=== PATIENT | male | born 1975 | race Two or more races ===

== ENCOUNTER 2024-11-11 18:21 | Emergency (ER) | payer MEDICAID, OTHER ==
[~2024-11-11] VITALS: Ht 177.8 cm; Wt 109.7 kg
--- NOTE | 2024-11-11 19:22 | ED.PDOC ---
SOB-HPI HPI Comments C/O LEFT RIB PAIN ON MOVEMENT AND WHEN HE COUGHS STARTED LAST NIGHT DENIES FALL OR TRAUMA C/O RIGHT KNEE PAIN X 3 WEEKS DENIES INJURY Chief Complaint: Rib Pain Time Seen by MD: 18:25 Primary Care Provider: NONE Reviewed notes: Nurses Notes, Medications, Allergies Information Source: Patient Mode of Arrival: Ambulatory Past Medical History PAST MEDICAL HISTORY: Denies Surgical History: Denies all surgeries Family History Family History: Reviewed,noncontributory to illness Social History Smoker: Non-Smoker Alcohol: Denies ETOH Use Drugs: Denies Drug Use Constitutional: denies: chills, diaphoresis, fatigue, fever, malaise, sweats, weakness, others EENTM: denies: blurred vision, double vision, ear bleeding, ear discharge, ear drainage, ear pain, ear ringing, eye pain, eye redness, hearing loss, mouth pain, mouth swelling, nasal discharge, nose bleeding, nose congestion, nose pain, photophobia, tearing, throat pain, throat swelling, voice changes, others Respiratory: denies: cough, hemoptysis, orthopnea, SOB at rest, shortness of breath, SOB with excertion, stridor, wheezing, others Cardiovascular: denies: chest pain, dizzy spells, diaphoresis, Dyspnea on exertion, edema, irregular heart beat, left arm pain, lightheadedness, palpitations, PND, syncope, others Gastrointestinal: denies: abdomen distended, abdominal pain, blood streaked bowels, constipated, diarrhea, dysphagia, difficulty swallowing, hematemesis, melena, nausea, poor appetite, poor fluid intake, rectal bleeding, rectal pain, vomiting, others Genitourinary: denies: burning, dysuria, flank pain, frequency, hematuria, incontinence, penile discharge, penile sore, pain, testicle pain, testicle swelling, urgency, others Neurological: denies: dizziness, fainting, headache, left sided numbness, left sided weakness, numbness, paresthesia, pre-existing deficit, right sided numbness, right sided weakness, seizure, speech problems, tingling, tremors, weakness, others Musculoskeletal: reports: joint pain, others (left rib pain); denies: back pain, gout, joint swelling, muscle pain, muscle stiffness, neck pain Physical Exam General Appearance: No Apparent Distress, Normal HEENT: Normal ENT Inspection, Pharynx Normal, TMs Normal Neck: Full Range of Motion, Non-Tender Respiratory: Lungs Clear, No Accessory Muscle Use, No Respiratory Distress, Normal Breath Sounds, Other (Left lower rib tenderness no noted gross visible external trauma) Cardiovascular: No Edema, No JVD, No Murmur, No Gallop, Normal Peripheral Pu lses, Regular Rate/Rhythm Breast Exam: Deferred Gastrointestinal: No Organomegaly, Non Tender, No Pulsatile Mass, Normal Bowel Sounds, Soft Genitalia: Deferred Pelvic: Deferred Rectal: Deferred Extremities: No calf tenderness, Normal capillary refill, Normal inspection, Normal range of motion, Non-tender, No pedal edema Musculoskeletal : Location: Right Extremity Location: Knee (Tenderness palpated over anterior knee negative Marcella's negative drawer test. Negative ballottement. No noted gross visible external trauma. Strength sensory motion intact positive popliteal and pedal pulse) Apperance: Normal Neurologic: Alert, bone crusher II-XII nml as Tested, No Motor Deficits, Normal Affect, Normal Mood, No Sensory Deficits Cerebellar Function: Normal Reflexes: Normal Skin: Dry, Normal Color, Warm Lymphatic: No Adenopathy Was a procedure done? Was a procedure done?: No Differential Dx Differential Diagnosis: Pneumonia, Pneumothorax X-Ray, Labs, Meds, VS Vital Signs Date Time Temp Pulse Resp B/P (MAP) Pulse Ox O2 Delivery O2 Flow Rate FiO2 11/11/24 18:48 98.5 87 15 151/96 (114) 98 98.5 X-Ray, Labs, Meds, VS Comment Rib and chest x-ray show no acute fractures, osseous lesions or cardiopulmonary findings. Right knee shows no acute fractures dislocations mild OA. Script trial of antibiotics Medrol Dosepak cough medication advised take medications as prescribed side effects discussed. Advised to follow up PCP in 2-3 days as necessary rest increase p.o. fluids with electrolytes ER return precautions given patient indicates understanding agrees with discharge plan of care. Time of 1ST Reevaluation: 19:22 Reevaluation 1ST: Unchanged Time of 2ND Reevaluation: 22:03 Reevaluation 2ND: Improved Patient Education/Counseling: Diagnosis, Treatment, Prognosis, Need For Follow Up Family Education/Counseling: No Family Present SEPSIS Sepsis Screen Date sepsis recognized/suspect: Nov 11, 2024 Time Sepsis recognized/suspect: 1819 Recent Procedure: No On Antibiotic Therapy: No Respiratory Rate >20: No Heart Rate >90: No Temp<36 C (96.8 F) or >38.3 C: No SBP <90 or MAP <65 mmHG: No New Acute Mental Status Change: No Is the patient on CPAP, BIPAP,: No Physician Orders Ribs Bilateral (11/11/24 19:23) R Knee 3v Xray (11/11/24 19:23) Vital Signs Date Time Temp Pulse Resp B/P (MAP) Pulse Ox O2 Delivery O2 Flow Rate FiO2 11/11/24 18:48 98.5 87 15 151/96 (114) 98 98.5 Departure 1 Departure Time of Disposition: 22:00 Impression: Primary Impression: Rib pain on left side Additional Impression: Arthritis of right knee Disposition: 01 HOME / SELF CARE / HOMELESS Condition: Stable e-Prescriptions Methylprednisolone (Medrol Dosepak) 4 Mg Jean Carlos 4 MG PO UD for 6 Days, #21 TAB UAD Prov: ROMERO THOMPSONP 11/11/24 Promethazine-Dm (Promethazine Hydrochlorid 6.25-15 mg/5Ml) 1 Naila Naila 5 ML PO TID PRN for 4 Days, #60 ML Prov: ROMERO THOMPSON [facility] 11/11/24 Azithromycin (Azithromycin) 250 Mg Tab 250 MG PO DAILY MDD 500 for 5 Days, #6 TAB 0 Refills 2 TABLETS ORALLY ON DAY ONE, THEN 1 TABLET ORALLY DAILY FOR 4 DAYS Prov: ROMERO THOMPSON 11/11/24 Discharged With: Self Critical Care Note Critical Care Time?: No Stability Stability form required: No Heart Score Heart Score: Heart Score Response (Comments) Value History N/A 0 EKG N/A 0 Age 45-64 1 Risk Factors N/A 0 Troponin N/A 0 Total 1 ROMERO THOMPSON Nov 11, 2024 19:22
--- NOTE | 2024-11-11 21:17 | DVH ---
CLINICAL INDICATION: Pain TECHNIQUE: XY R KNEE 3V XRAY Comparison: None FINDINGS/IMPRESSION: : There is no evidence of acute fracture or dislocation. Soft tissues are unremarkable.
--- NOTE | 2024-11-11 21:52 | DVH ---
EXAMINATION: XY RIBS BILATERAL INDICATION: Right-sided rib pain and cough COMPARISON: None TECHNIQUE: Frontal view of the chest and 8 views of the bilateral ribs history FINDINGS: No focal consolidation, pleural effusion or significant pneumothorax. Normal cardiomediastinal silhou ette. No displaced bilateral rib fracture. IMPRESSION: 1. No acute cardiopulmonary disease. No displaced bilateral rib fracture.
[2024-11-11] MEDS ORDERED: METH4PAK PO (22:03)
[2024-11-11] MEDS ORDERED: AZIT-43 PO (22:03)
[2024-11-11] MEDS ORDERED: PROM1SOL2 PO (22:03)
[2024-11-11 22:10] VITALS: BP 139/89; PULSE 89; RESP 16; TEMP 98.5; O2SAT 95
[2024-11-11] MEDS: KETOROLAC TROMETH 60MG/2ML VIAL IM ONE (22:15)
[2024-11-11] MEDS: HYDROcodone-ACET 5/325MG TAB PO ONE (22:16)
== END 2024-11-11 22:23 | disposition home or self-care (01) ==
LOC: ER 18:21
DX: M17.11 Unilateral primary osteoarthritis, right knee (principal); R07.81 Pleurodynia
CPT/HCPCS: 71111; 73562; 96372; 99284; J1885

== ENCOUNTER 2024-11-26 16:05 | Emergency (ER) | payer MEDICAID ==
[~2024-11-26] VITALS: Ht 177.8 cm; Wt 102.0 kg
[~2024-11-26 16:05] MED LIST: AZIT-43 PO
[2024-11-26 18:34] VITALS: BP 142/99; PULSE 88; RESP 17; TEMP 98.7; O2SAT 96
--- NOTE | 2024-11-26 18:36 | ED.PDOC ---
GI ASSESSMENT HPI Comments 49-year-old presents to the ED chief complaint possible food poisoning. Patient states around 6:00 a.m. earlier today he took a bite of a doing done pastry and states tasted like paint thinner. Patient states he took a little bite and spit the rest out. He notes about 30 40 minutes after he started having some abdominal cramping mouth numbness and nausea. Noted no vomiting chest pain or shortness of breath does state some dizziness. Currently he does state symptoms have improved he does have some cramping generalized with some nausea. Chief Complaint: Abdominal Pain Time Seen by MD: 18:09 Primary Care Provider: NONE Reviewed Notes: Nurses Notes, Medications, Allergies Allergies: Coded Allergies: NO KNOWN ALLERGIES (Unverified , 11/11/24) Home Meds Active Scripts Azithromycin (Azithromycin) 250 Mg Tab, 250 MG PO DAILY MDD 500 for 5 Days, #6 TAB 0 Refills 2 TABLETS ORALLY ON DAY ONE, THEN 1 TABLET ORALLY DAILY FOR 4 DAYS Prov:ROMERO THOMPSON [facility] 11/11/24 Information Source: Patient Mode of Arrival: Ambulatory Past Medical History PAST MEDICAL HISTORY: Denies Surgical History: Denies all surgeries Family History Family History: Reviewed,noncontributory to illness Social History Smoker: Non-Smoker Alcohol: Denies ETOH Use Drugs: Denies Drug Use Constitutional: denies: chills, diaphoresis, fatigue, fever, malaise, sweats, weakness, others EENTM: denies: blurred vision, double vision, ear bleeding, ear discharge, ear drainage, ear pain, ear ringing, eye pain, eye redness, hearing loss, mouth pain, mouth swelling, nasal discharge, nose bleeding, nose congestion, nose pain, photophobia, tearing, throat pain, throat swelling, voice changes, others Respiratory: denies: cough, hemoptysis, orthopnea, SOB at rest, shortness of breath, SOB with excertion, stridor, wheezing, others Cardiovascular: denies: chest pain, dizzy spells, diaphoresis, Dyspnea on exertion, edema, irregular heart beat, left arm pain, lightheadedness, palpitations, PND, syncope, others Gastrointestinal: reports: abdominal pain, nausea; denies: abdomen distended, blood streaked bowels, constipated, diarrhea, dysphagia, difficulty swallowing, hematemesis, melena, poor appetite, poor fluid intake, rectal bleeding, rectal pain, vomiting, others Genitourinary: denies: burning, dysuria, flank pain, frequency, hematuria, incontinence, penile discharge, penile sore, pain, testicle pain, testicle swelling, urgency, others Neurological: denies: dizziness, fainting, headache, left sided numbness, left sided weakness, numbness, paresthesia, pre-existing deficit, right sided numbness, right sided weakness, seizure, speech problems, tingling, tremors, weakness, others Musculoskeletal: denies: back pain, gout, joint pain, joint swelling, muscle pain, muscle stiffness, neck pain, others Integumetry: denies: bruises, change in color, change in hair/nails, dryness, laceration, lesions, lumps, rash, wounds, others Allergic/Immunocompromised: denies: Difficulty Healing, Frequent Infections, Hives, Itching, others Hematologic/Lymphatic: denies: anemia, blood clots, easy bleeding, easy bruising, swollen glands, others Endocrine: denies: excessive hunger, excessive sweating, excessive thirst, excessive urination, flushing, intolerance to cold, intolerance to heat, unexplained weight gain, unexplained weight loss, others Physical Exam General Appearance: No Apparent Distress, Normal HEENT: Pharynx Normal Neck: Full Range of Motion, Non-Tender Respiratory: Lungs Clear, No Respiratory Distress, Normal Breath Sounds Cardiovascular: No Edema, No JVD, No Murmur, No Gallop, Normal Peripheral Pulses, Regular Rate/Rhythm Breast Exam: Deferred Gastrointestinal: No Organomegaly, Non Tender, No Pulsatile Mass, Normal Bowel Sounds, Soft Genitalia: Deferred Pelvic: Deferred Rectal: Deferred Extremities: Normal range of motion, No pedal edema Musculoskeletal : Apperance: Normal Neurologic: Alert, No Motor Deficits, Normal Affect, Normal Mood, No Sensory Deficits Cerebellar Function: Normal Reflexes: NOT DONE Skin: Dry, Normal Color, Warm Lymphatic: No Adenopathy Was a procedure done? Was a procedure done?: No GI differential Dx Differential Diagnosis: Gastritis/PUD, Gastroenteritis, Food Poisoning, Bacterial, Parasitic, Viral X-Ray, Labs, Meds, VS Vital Signs Date Time Temp Pulse Resp B/P (MAP) Pulse Ox O2 Delivery O2 Flow Rate FiO2 11/26/24 18:34 88 17 96 Room Air 11/26/24 18:34 98.7 88 16 142/99 (113) 96 98.7 11/26/24 16:07 97.5 81 16 159/97 95 97.5 Lab Test 11/26/24 18:21 Range/Units White Blood Count 6.3 4.4-10.8 10^3/uL Red Blood Count 5.74 4.5-5.90 10^6/uL Hemoglobin 16.3 13.5-17.5 g/dL Hematocrit 47.1 41.0-53.0 % Mean Corpuscular Volume 82.1 80.0-100.0 fL Mean Corpuscular Hemoglobin 28.5 28.0-32.0 pg Mean Corpuscular Hemoglobin Concent 34.7 32.0-36.0 g/dL Red Cell Distribution Width 14.9 H 11.8-14.3 % Platelet Count 248 140-450 10^3/uL Mean Platelet Volume 7.6 6.9-10.8 fL Neutrophils (%) (Auto) 62.5 37.0-80.0 % Lymphocytes (%) (Auto) 26.9 10.0-50.0 % Monocytes (%) (Auto) 7.0 0.0-12.0 % Eosinophils (%) (Auto) 2.5 0.0-7.0 % Basophils (%) (Auto) 1.1 0.0-2.0 % Neutrophils # (Auto) 3.9 1.6-8.6 10 ^3/uL Lymphocytes # (Auto) 1.7 0.4-5.4 10 ^3/uL Monocytes # (Auto) 0.4 0-1.3 10 ^3/uL Eosinophils # (Auto) 0.2 0-0.8 10 ^3/uL Basophils # (Auto) 0.1 0-0.2 10 ^3/uL Nucleated Red Blood Cells 0.0 % Sodium Level 142 136-145 mmol/L Potassium Level 3.8 3.5-5.1 mmol/L Chloride Level 110 H 98-107 mmol/L Carbon Dioxide Level 23 20-31 mmol/L Anion Gap 9 5-15 Blood Urea Nitrogen 14 9-23 mg/dL Creatinine 1.13 0.700-1.30 mg/dL Glomerular Filtration Rate Calc 81 >90 mL/min BUN/Creatinine Ratio 12.4 10.0-20.0 Serum Glucose 111 H 74-106 mg/dL Calcium Level 9.0 8.7-10.4 mg/dL Lipase 60 H 12-53 U/L Current Medications Medications (Trade) Dose Ordered Sig/Fabian Route Start Time Stop Time Status Last Admin Famotidine (Pepcid Tablet) 40 mg ONCE ONCE PO 11/26/24 18:45 11/26/24 18:46 DC 11/26/24 18:38 Ondansetron HCl (Zofran Po) 4 mg ONCE ONCE PO 11/26/24 18:45 11/26/24 18:46 DC 11/26/24 18:39 X-Ray, Labs, Meds, VS Comment CBC CMP within normal limits. Possible food poisoning. Reports improvement with Pepcid and Zofran. Advised to rest increase p.o. fluids with electrolytes. Light diet until symptoms resolve. Follow up with your PCP in two days. ER return precautions given patient indicates understanding agrees with discharge plan of care. Time of 1ST Reevaluation: 18:15 Reevaluation 1ST: Unchanged Time of 2ND Reevaluation: 19:07 Reevaluation 2ND: Improved Patient Education/Counseling: Diagnosis, Treatment, Prognosis, Need For Follow Up Family Education/Counseling: Diagnosis, Treatment, Prognosis, Need For Follow Up SEPSIS Sepsis Screen Date sepsis recognized/suspect: Nov 26, 2024 Time Sepsis recognized/suspect: 1609 Recent Procedure: No On Antibiotic Therapy: No Respiratory Rate >20: No Heart Rate >90: No Temp<36 C (96.8 F) or >38.3 C: No SBP <90 or MAP <65 mmHG: No New Acute Mental Status Change: No Is the patient on CPAP, BIPAP,: No Vital Signs Date Time Temp Pulse Resp B/P (MAP) Pulse Ox O2 Delivery O2 Flow Rate FiO2 11/26/24 18:34 88 17 96 Room Air 11/26/24 18:34 98.7 88 16 142/99 (113) 96 98.7 11/26/24 16:07 97.5 81 16 159/97 95 97.5 Laboratory Tests Test 11/26/24 18:21 White Blood Count 6.3 10^3/uL (4.4-10.8) Medications Medications Dose Ordered Sig/Fabian Route Start Time Stop Time Status Last Admin Dose Admin Famotidine 40 mg ONCE ONCE PO 11/26/24 18:45 11/26/24 18:46 DC 11/26/24 18:38 Ondansetron HCl 4 mg ONCE ONCE PO 11/26/24 18:45 11/26/24 18:46 DC 11/26/24 18:39 Departure 1 Departure Time of Disposition: 19:07 Impression: Primary Impression: Gastritis Qualified Codes: K29.00 - Acute gastritis without bleeding Disposition: 01 HOME / SELF CARE / HOMELESS Condition: Stable Discharged With: Self Critical Care Note Critical Care Time?: No Stability Stability form required: ROMERO SimeonP Nov 26, 2024 18:36
[2024-11-26] MEDS: FAMOTIDINE 20 MG TAB PO ONE (18:38)
[2024-11-26] MEDS: ONDANSETRON ODT 4 MG TAB PO ONE (18:39)
[2024-11-26 18:41] LABS: Hematocrit 47.1 % (41.0-53.0); Hemoglobin 16.3 g/dL (13.5-17.5); Mean Corpuscular Hemoglobin 28.5 pg (28.0-32.0); Mean Corpuscular Volume 82.1 fL (80.0-100.0); Nucleated Red Blood Cells % 0.0 %
[2024-11-26 18:50] LABS: Potassium 3.8 mmol/L (3.5-5.1); Sodium 142 mmol/L (136-145)
[2024-11-26 18:51] LABS: Anion Gap 9 (5-15); Carbon Dioxide 23 mmol/L (20-31)
[2024-11-26 18:52] LABS: Calcium 9.0 mg/dL (8.7-10.4)
[2024-11-26 18:54] LABS: Chloride 110 mmol/L (98-107)
[2024-11-26 18:57] LABS: BUN/Creatinine Ratio 12.4 (10.0-20.0); Blood Urea Nitrogen 14 mg/dL (9-23); Glucose 111 mg/dL (74-106); Lipase 60 U/L (12-53)
== END 2024-11-26 19:13 | disposition home or self-care (01) ==
LOC: ER 16:05
DX: K29.70 Gastritis, unspecified, without bleeding (principal)
CPT/HCPCS: 36415; 80048; 83690; 85025; 99283; Q0162

== ENCOUNTER 2025-03-12 15:26 | Inpatient (IN) | payer SELFPAY ==
[~2025-03-12] VITALS: Ht 180.3 cm; Wt 115.0 kg
[2025-03-12] MEDS: KETOROLAC TROMETH 30 MG/ML 1ML VIAL IM ONE (16:04)
[2025-03-12] MEDS: HYDROcodone-ACET 5/325MG TAB PO ONE (16:04)
--- NOTE | 2025-03-12 16:23 | DVH ---
EXAM: XY L KNEE 3V XRAY HISTORY: pain COMPARISON: XY R KNEE 3V XRAY on DOS: 11/11/24 TECHNIQUE: 3 views of the left knee were performed. FINDINGS: No acute fracture is identified about the left knee. There are small marginal osteophytes of the medial and patellofemoral compartments without significant joint space narrowing. Large joint effusion accumulates in the suprapatellar pouch IMPRESSION: 1. Mild degenerative changes of the left knee without evidence of acute fracture. 2. Large left knee effusion is suggestive of internal derangement. Recommend follow-up noncontrast MRI of the left knee for evaluation of the ligaments and menisci.
--- NOTE | 2025-03-12 17:09 | ED.PDOC ---
Musculoskeletal HPI Comments This is a pleasant 49-year-old male with no pertinent MHx that presents with a chief complaint of acute, atraumatic, localized nonradiating knee pain that is located to the left anterior patella. Onset occurred suddenly yesterday and was associated with swelling. Swelling is mostly localized to the anterior knee. The pain began yesterday after a cramp in his foot while lying down which led to stretching and subsequent swelling to the knee. Since then however the pain has been persistent and has not improved with [id number] medication. Patient has no history of recent trauma or extreme physical activity that could have contributed to the pain. 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 He denies any knee surgeries knee traumas in the past. Denies any history of diabetes autoimmune diseases. He also notes that he does not have a primary care doctor at this time in his unable to obtain outpatient follow up. ==-- Denies trauma to the knee or recent fall Denies skin color changes around the knee Denies masses around the knee Denies popping/locking/giving out of the knee Denies fever chills night sweats nausea vomiting Denies previous surgeries to the knee nor significant injury Chief Complaint: Lower Extremity Time Seen by MD: 15:46 Primary Care Provider: NONE Reviewed Notes: Nurses Notes, Medications, Allergies Allergies: Coded Allergies: NO KNOWN ALLERGIES (Unverified , 11/11/24) Home Meds Active Scripts Azithromycin (Azithromycin) 250 Mg Tab, 250 MG PO DAILY MDD 500 for 5 Days, #6 TAB 0 Refills 2 TABLETS ORALLY ON DAY ONE, THEN 1 TABLET ORALLY DAILY FOR 4 DAYS Prov:ROMERO THOMPSON [facility] 11/11/24 Information Source: Patient Mode of Arrival: Ambulatory Past Medical History PAST MEDICAL HISTORY: Denies Surgical History: Denies all surgeries Family History Family History: Reviewed,noncontributory to illness Social History Smoker: Non-Smoker Alcohol: Denies ETOH Use Drugs: Denies Drug Use All Other Systems: Reviewed and Negative (per hpi) Physical Exam General Appearance: No Apparent Distress, Normal HEENT: Normal ENT Inspection, Pharynx Normal, TMs Normal Neck: Full Range of Motion, Non-Tender, Normal, Normal Inspection Respiratory: Chest Non-Tender, Lungs Clear, No Accessory Muscle Use, No Respiratory Distress, Normal Breath Sounds Cardiovascular: No Edema, No JVD, No Murmur, No Gallop, Normal Peripheral Pulses, Regular Rate/Rhythm Breast Exam: Deferred Gastrointestinal: No Organomegaly, Non Tender, No Pulsatile Mass, Normal Bowel Sounds, Soft Genitalia: Deferred Pelvic: Deferred Rectal: Deferred Extremities: No calf tenderness, Normal capillary refill, Normal inspection, Normal range of motion, Non-tender, No pedal edema Musculoskeletal : Apperance: Normal Neurologic: Alert, application internship II-XII nml as Tested, No Motor Deficits, Normal Affect, Normal Mood, No Sensory Deficits Cerebellar Function: Normal Reflexes: Normal Skin: Dry, Normal Color, Warm Lymphatic: No Adenopathy Was a procedure done? Was a procedure done?: No Images 1 - Noticeable knee effusion. TTP. Unable to flex and extend the knee due to pain. No erythema. No crepitus. Localized TTP to the patella and the patellar tendon. Differential Diagnosis EXT Differential Diagnosis: Cellulitis, Fracture, Sprain, Dislocation, Gout, Contusion, Rheumatoid, Septic, Arthritis, Bursitis X-Ray, Labs, Meds, VS Vital Signs Date Time Temp Pulse Resp B/P (MAP) Pulse Ox O2 Delivery O2 Flow Rate FiO2 03/12/25 16:58 83 16 95 Room Air 03/12/25 16:58 97.9 83 17 154/106 (122) 95 97.9 03/12/25 15:27 97.7 93 16 154/99 95 97.7 Current Medications Medications (Trade) Dose Ordered Sig/Fabian Route Start Time Stop Time Status Last Admin Ketorolac Tromethamine (Toradol Injection) 30 mg ONCE ONCE IM 03/12/25 16:00 03/12/25 16:01 DC 03/12/25 16:04 Acetaminophen/ Hydrocodone Bitart (Abbott 5/325MG Tab) 1 tab ONCE ONCE PO 03/12/25 16:00 03/12/25 16:01 DC 03/12/25 16:04 PATIENT: LANEY BOURNECCT: [id number]: [id number] : 1975 LOC: ER ROOM / BED: / AGE / SEX: 49 / M ADM STATUS: REG ER SERVICE 1886 ORDERING PHYSICIAN: SANDEE CURTIS NP PROCEDURE(s): LKNE3 - L KNEE 3V XRAY REASON: pain ORDER NUMBER(s): [id number], ACCESSION NUMBER(s): [id number] EXAM: XY L KNEE 3V XRAY HISTORY: pain COMPARISON: XY R KNEE 3V XRAY on DOS: 11/11/24 TECHNIQUE: 3 views of the left knee were performed. FINDINGS: No acute fracture is identified about the left knee. There are small marginal osteophytes of the medial and patellofemoral compartments without significant joint space narrowing. Large joint effusion accumulates in the suprapatellar pouch IMPRESSION: 1. Mild degenerative changes of the left knee without evidence of acute fracture. 2. Large left knee effusion is suggestive of internal derangement. Recommend follow-up noncontrast MRI of the left knee for evaluation of the ligaments and menisci. ATED BY: DONTRELL HENNING MD DICTATED DATE/TIME: 03/12/251620 SIGNED BY: DONTRELL HENNING MD SIGNED DATE/TIME: 03/12/251620 CC: X-Ray, Labs, Meds, VS Comment This is a pleasant 49-year-old male that presents with a chief complaint of acute left knee pain and swelling since yesterday. Pain has been persistent since. Patient arrives alert and oriented, ABC's intact, afebrile, vital signs stable, saturating well in room air Peripheral IV insertion+ labs were ordered. CBC was ordered to exclude anemia, blood loss, or infection. BMP was ordered to exclude electrolyte abnormalities, renal failure, dehydration, hyperglycemia Uric acid was ordered to rule out gout Sed rate CRP ordered to rule out inflammation Diagnostic imaging ordered by me and results interpreted by radiology : IMPRESSION: 1. Mild degenerative changes of the left knee without evidence of acute fracture. 2. Large left knee effusion is suggestive of internal derangement. Recommend follow-up noncontrast MRI of the left knee for evaluation of the ligaments and menisci. Patient was given: Toradol and Abbott for his pain. Tolerated medications with no adverse reaction. Patients work up was remarkable for Large left knee effusion is suggestive of internal derangement. Recommend follow-up noncontrast MRI of the left knee for evaluation of the ligaments and menisci. The patient's workup reveals that the patient needs further evaluation and/or treatment for the above medical conditions as the patient has no access to a PCP nor outpatient follow up at this time.. Patient verbalized understanding of the above and is awaiting further evaluation by the admitting service. Time of 1ST Reevaluation: 17:06 Reevaluation 1ST: Unchanged Patient Education/Counseling: Diagnosis, Treatment Family Education/Counseling: Diagnosis, Treatment Departure 1 Departure Time of Disposition: 17:07 Impression: Primary Impression: Knee effusion, left Additional Impression: Intractable pain Disposition: ADMITTED INPATIENT Condition: Fair Critical Care Note Critical Care Time?: No Stability Stability form required: No Heart Score Heart Score: Heart Score Response (Comments) Value History N/A 0 EKG N/A 0 Age N/A 0 Risk Factors N/A 0 Troponin N/A 0 Total 0 SANDEE CURTIS [employer] Mar 12, 2025 17:09
[2025-03-12 17:33] LABS: Hematocrit 48.9 % (41.0-53.0); Hemoglobin 16.7 g/dL (13.5-17.5); Mean Corpuscular Hemoglobin 28.1 pg (28.0-32.0); Mean Corpuscular Volume 82.4 fL (80.0-100.0); Nucleated Red Blood Cells % 0.3 %
[2025-03-12 17:46] LABS: Potassium 4.0 mmol/L (3.5-5.1); Sodium 142 mmol/L (136-145)
[2025-03-12 17:47] LABS: Anion Gap 10 (5-15); Carbon Dioxide 25 mmol/L (20-31)
[2025-03-12 17:48] LABS: Calcium 9.6 mg/dL (8.7-10.4)
[2025-03-12 17:52] LABS: BUN/Creatinine Ratio 12.5 (10.0-20.0); Blood Urea Nitrogen 14 mg/dL (9-23)
[2025-03-12 18:11] LABS: Uric Acid 5.8 mg/dL (3.7-9.2)
[2025-03-12 18:42] LABS: Chloride 107 mmol/L (98-107); Glucose 110 mg/dL (74-106)
--- NOTE | 2025-03-12 20:53 | DVHHPRES ---
History of Present Illness Resident Creating Document: KRISTY GARZA RESIDENT History of Present Illness This is a 49-year-old male with past medical history of asthma not on medication, HLD came to ER with complaint of left knee pain and swelling which started suddenly 2 days ago which is constant, dull, 8/10 intensity, no r adiation, aggravated on walking, no relieving factor. Patient stated he had left foot cramps at nighttime 2 days before and noticed swelling left knee next morning when he woke up from sleep. Denies any trauma, MVA , recent sick contacts, hiking or multiple sexual partner. Denies any heavy weightlifting, fever, SOB, chest pain, abdominal pain, dysuria or any other acute distress. Patient also noticed itching with scratches medial side of the left ankle but denies any insect bite. Past medical history: As above Past surgical history: Bilateral tympanoplasty in childhood Family history: Mother-colon cancer, father- from heart attack. Personal history: Denies cigarette smoking, smoked marijuana stopped 2 years back. No EtOH or illicit drug use. Allergy: No known allergy PCP: Not selected Home medication: None Review of Systems Constitutional: Yes: Malaise; No: Fever, Chills, Sweats, Weakness, Other Eyes: No: Pain, Vision change, Conjunctivae inflammation, Eyelid inflammation, Other, Redness ENT: No: Ear pain, Ear discharge, Nose pain, Nose discharge, Nose congestion, Mouth pain, Mouth swelling, Throat pain, Throat swelling, Other Respiratory: No: Cough, Dry, Shortness of breath, SOB with excertion, Wheezing, Hemoptysis, Pleuritic Pain, Sputum, Wheezing, Other Cardiovascular: No: Chest Pain, Palpitations, Orthopnea, Paroxysmal Noc. Dyspnea, Edema, Lt Headedness, Other Gastrointestinal: No: Nausea, Vomiting, Abdominal Pain, Diarrhea, Constipation, Melena, Hematochezia, Other Genitourinary: No Dysuria, No Frequency, No Incontinence, No Hematuria, No Retention, No Other Musculoskeletal: other (Left knee pain and swelling), leg pain; No: neck pain, shoulder pain, arm pain, back pain, hand pain, foot pain Skin: No: Rash, Lesions, Jaundice, Bruising, Other Neurological: No: Weakness, Numbness, Incoordination, Change in speech, Confusion, Seizures, Other Allergies: Coded Allergies: NO KNOWN ALLERGIES (Unverified , 11/11/24) Exam Vital Signs Vital Signs Date Time Temp Pulse Resp B/P (MAP) Pulse Ox O2 Delivery O2 Flow Rate FiO2 03/12/25 16:58 83 16 95 Room Air 03/12/25 16:58 97.9 154/106 (122) 97.9 General Appearance: Alert, Oriented X3, Cooperative, moderate distress HEENT: Atraumatic, PERRLA, EOMI Respiratory: Normal air movement, Other (Mild wheeze bilateral on auscultation) Cardiovascular: Regular rate, Normal S1, Normal S2, No murmurs Abdominal: Normal bowel sounds, Soft, No tenderness, No hepatospenomegaly Extremities: No clubbing, No cyanosis, Normal pulses, Other (Left knee tender on deep palpation, actively restricted movement ) Skin: No rashes Neuro: Normal speech, Strength at 5/5 X4 ext, Sensation intact, Other (Gait instability due to left knee pain) Psych/Mental Status: Mental status NL, Mood NL Labs/Xrays Labs Test 03/12/25 17:15 Range/Units White Blood Count 6.5 4.4-10.8 10^3/uL Red Blood Count 5.93 H 4.5-5.90 10^6/uL Hemoglobin 16.7 13.5-17.5 g/dL Hematocrit 48.9 41.0-53.0 % Mean Corpuscular Volume 82.4 80.0-100.0 fL Mean Corpuscular Hemoglobin 28.1 28.0-32.0 pg Mean Corpuscular Hemoglobin Concent 34.1 32.0-36.0 g/dL Red Cell Distribution Width 14.3 11.8-14.3 % Platelet Count 294 140-450 10^3/uL Mean Platelet Volume 7.3 6.9-10.8 fL Neutrophils (%) (Auto) 57.5 37.0-80.0 % Lymphocytes (%) (Auto) 28.4 10.0-50.0 % Monocytes (%) (Auto) 10.2 0.0-12.0 % Eosinophils (%) (Auto) 3.7 0.0-7.0 % Basophils (%) (Auto) 0.2 0.0-2.0 % Neutrophils # (Auto) 3.7 1.6-8.6 10 ^3/uL Lymphocytes # (Auto) 1.8 0.4-5.4 10 ^3/uL Monocytes # (Auto) 0.7 0-1.3 10 ^3/uL Eosinophils # (Auto) 0.2 0-0.8 10 ^3/uL Basophils # (Auto) 0 0-0.2 10 ^3/uL Nucleated Red Blood Cells 0.3 % Erythrocyte Sedimentation Rate 3 0-20 mm/hr Sodium Level 142 136-145 mmol/L Potassium Level 4.0 3.5-5.1 mmol/L Chloride Level 107 98-107 mmol/L Carbon Dioxide Level 25 20-31 mmol/L Anion Gap 10 5-15 Blood Urea Nitrogen 14 9-23 mg/dL Creatinine 1.12 0.700-1.30 mg/dL Glomerular Filtration Rate Calc 82 >90 mL/min BUN/Creatinine Ratio 12.5 10.0-20.0 Serum Glucose 110 H 74-106 mg/dL Uric Acid 5.8 3.7-9.2 mg/dL Calcium Level 9.6 8.7-10.4 mg/dL C-Reactive Protein High Sensitivity 0.28 <1.0 mg/dL SEPSIS Sepsis Screen Date sepsis recognized/suspect: Mar 12, 2025 Time Sepsis recognized/suspect: 1529 Recent Procedure: No On Antibiotic Therapy: No Respiratory Rate >20: No Heart Rate >90: Yes Temp<36 C (96.8 F) or >38.3 C: No SBP <90 or MAP <65 mmHG: No New Acute Mental Status Change: No Is the patient on CPAP, BIPAP,: No Physician Orders L Knee 3v Xray (03/12/25 15:51) Vital Signs Date Time Temp Pulse Resp B/P (MAP) Pulse Ox O2 Delivery O2 Flow Rate FiO2 03/12/25 16:58 83 16 95 Room Air 03/12/25 16:58 97.9 83 17 154/106 (122) 95 97.9 03/12/25 15:27 97.7 93 16 154/99 95 97.7 Laboratory Tests Test 03/12/25 17:15 White Blood Count 6.5 10^3/uL (4.4-10.8) Medications Medications Dose Ordered Sig/Fabian Route Start Time Stop Time Status Last Admin Dose Admin Acetaminophen/ Hydrocodone Bitart 1 tab ONCE ONCE PO 03/12/25 16:00 03/12/25 16:01 DC 03/12/25 16:04 1 TAB Ketorolac Tromethamine 30 mg ONCE ONCE IM 03/12/25 16:00 03/12/25 16:01 DC 03/12/25 16:04 30 MG Assessment/Plan Assessment/Plan ? Left knee septic arthritis Left knee effusion Left knee pain In ER, received Page and ketorolac. No leukocytosis ESR 03, CRP 0.28, uric acid 5.8 left knee x-ray: Mild degenerative changes of the left knee without evidence of acute fracture. Large left knee effusion is suggestive of internal derangement. Ultrasound left knee- 6.42 x 2.28 x 4.37 cm fluid collection anteriorly in the left knee Urine GC chlamydia, FELA, hepatitis, HIV, Rh factor Venous duplex left lower extremity-neg for DVT. Pain management Arthrocentesis as per primary team. Asthma without exacerbation Not on any medication Hyperlipidemia Not on any medication Lifestyle modification Low-fat diet Obesity, BMI 38.0 Lifestyle modification GI prophylaxis: Pantoprazole DVT prophylaxis: Lovenox Diet: Regular Goals of care discussions. More than 27 minutes spent with patient. Full code status. Case discussed with Dr. Lawrence. Plan discussed with: Patient, Other (Nurse) Date of Service: Mar 12, 2025 Billing Provider: SOFIA LAWRENCE MD Common Visit Codes: [id number] INP/OBS CARE (HIGH) Secondary Visit Codes: [id number] CARE PLAN 30 MINUTES KRISTY GARZA RESIDENT Mar 12, 2025 20:53
--- NOTE | 2025-03-12 21:48 | DVH ---
Exam: US LEFT LOWER EXTREMITY ULTRASOUN Date: 03/12/2025 09:24 PM Clinical History: Left knee pain to rule out effusion Comparison: None Technique: Targeted sonographic evaluation of the soft tissues of the left knee was obtained utilizing grayscale and color Doppler imaging. Findings: There is a 6.42 x 2.28 x 4.37 cm collection of fluid anteriorly noted in the left knee. IMPRESSION: 1. 6.42 x 2.28 x 4.37 cm fluid collection anteriorly in the left knee.
--- NOTE | 2025-03-12 21:54 | DVH ---
Clinical History: Rule out DVT IN THE LEFT LOWER EXTREMITY. Comparison: None Technique: Duplex Doppler evaluation of the deep venous system of the left lower extremity from the common femoral vein to the popliteal vein including color Doppler and spectral/pulsed waveform analysis was performed. Findings: The common femoral vein demonstrates appropriate compressibility and waveform variability. There is compressibility/patency of the great saphenous vein at the proximal thigh. The femoral vein demonstrates appropriate compressibility and waveform variability. The deep femoral vein demonstrates appropriate compressibility and waveform variability. The popliteal vein demonstrates appropriate compressibility and waveform variability. There is normal compressibility at the tibioperoneal trunk. Impression: 1. No left deep venous thrombosis. 2. If clinical concern/symptoms persist or worsen, short-interval follow-up study is suggested.
[2025-03-12 22:07] VITALS: PULSE 73; RESP 16; O2SAT 95
[2025-03-12] MEDS: ALBUTEROL SULF 2.5 MG/0.5ML(0.5%) NEB SOLN NEB SCH (22:07)
[2025-03-12 22:10] LABS: INR 0.93 (0.9-1.15); Partial Thromboplastin Time 29.0 SEC (24.5-34.5); Prothrombin Time 9.9 sec (9.3-11.8)
[2025-03-12 22:16] VITALS: PULSE 74; RESP 18; O2SAT 97
[2025-03-12 22:22] VITALS: BP 154/106; PULSE 74; RESP 18; O2SAT 97
[2025-03-12 23:25] LABS: Cholesterol 213 mg/dL (< 200); HDL Cholesterol 60 mg/dL (40-59); Triglycerides 210 mg/dL (< 150)
[2025-03-13] VITALS (16 sets, daily range): BP systolic 121–149; BP diastolic 74–100; PULSE 67–104; RESP 15–18; TEMP 97.7–98.9; O2SAT 92–99
[2025-03-13] MEDS: hydrALAZINE HCL 20 MG/ML VL IV ONE (00:58)
--- NOTE | 2025-03-13 01:53 | DVH ---
CHEST RADIOGRAPH Indication: sob Technique: 1 view Comparison: None FINDINGS: Lines and Tubes: None. Lungs/Pleura: No focal consolidation, pleural effusion or pneumothorax. Cardiomediastinum: Unremarkable. Other: No acute osseous abnormality. IMPRESSION: 1. No acute cardiopulmonary abnormality.
[2025-03-13] MEDS: ENOXAPARIN SOD 40 MG/0.4 ML SYRINGE SC SCH (09:09)
[2025-03-13] MEDS: ONDANSETRON HCL 4 MG/2 ML VIAL IV PRN (09:46)
[2025-03-13 10:53] LABS: Hepatitis B Surface Antigen Negative (Negative); Hepatitis C Antibody Negative (Negative)
[2025-03-13 14:26] LABS: Cannabinoid Screen, Urine Neg (NEGATIVE); Opiate Scree,Urine Neg (NEGATIVE)
[2025-03-13 14:35] LABS: Urine Protein, UAD TRACE (Negative)
[2025-03-13 14:39] LABS: Amphetamine Screen, Urine Neg (NEGATIVE); Barbiturate Scree,Urine Neg (NEGATIVE); Benzodiazephine Screen, Urine Neg (NEGATIVE); Cocaine Screen, Urine Neg (NEGATIVE); Phencyclidine Screen, Urine Neg (NEGATIVE)
--- NOTE | 2025-03-13 17:26 | DVHPN2 ---
Subjective Continues to left knee pain Reviewed: Care Plan, H&P, Labs, Medications Changes from previous H/P or p: No Changes Eyes: No Pain, No Vision change, No Conjunctivae inflammation, No Eyelid inflammation, No Other, No Redness ENT: No Ear pain, No Ear discharge, No Nose pain, No Nose discharge, No Nose congestion, No Mouth pain, No Mouth swelling, No Throat pain, No Throat swelling, No Other Cardiovascular: No Chest Pain, No Palpitations, No Orthopnea, No Paroxysmal Noc. Dyspnea, No Edema, No Lt Headedness, No Other Respiratory: No Cough, No Dry, No Shortness of breath, No SOB with excertion, No Wheezing, No Hemoptysis, No Pleuritic Pain, No Sputum, No Other Gastrointestinal: No Nausea, No Vomiting, No Abdominal Pain, No Diarrhea, No Constipation, No Melena, No Hematochezia, No Other Genitourinary: No Dysuria, No Frequency, No Incontinence, No Hematuria, No Retention, No Other Musculoskeletal: other (Left knee pain and swelling); No neck pain, No shoulder pain, No arm pain, No back pain, No hand pain; leg pain; No foot pain Skin: No Rash, No Lesions, No Jaundice, No Bruising, No Other Objective Vitals Vital Signs Date Time Temp Pulse Resp B/P (MAP) Pulse Ox O2 Delivery O2 Flow Rate FiO2 03/13/25 14:03 70 18 99 03/13/25 13:53 Room Air 03/13/25 13:53 0 21 03/13/25 13:00 97.7 123/85 (98) 97.7 General Appearance: Alert, Oriented X3, Cooperative, No acute distress HEENT: Atraumatic, PERRLA Cardiovascular: Normal S1, Normal S2 Abdomen: Normal bowel sounds, Soft, No tenderness, No hepatospenomegaly Musculoskeletal: Normal sensory function, Normal motor function Neuro: Cranial nerves 3-12 NL Skin: Dry, Intact Psych/Mental Status: Mental status NL, Mood NL Medications Current Medications Medications Dose Ordered Sig/Fabian Route Start Time Stop Time Status Last Admin Dose Admin Acetaminophen/ Hydrocodone Bitart 1 tab Q4HP PRN PO 03/12/25 21:15 Enoxaparin Sodium 40 mg DAILY SC 03/13/25 10:00 03/13/25 09:09 40 MG Albuterol 2.5 mg Q8HR NEB 03/12/25 22:00 03/13/25 13:53 2.5 MG Amlodipine Besylate 10 mg DAILY PO 03/13/25 10:00 03/13/25 11:41 10 MG Ondansetron HCl 4 mg Q4HPRN PRN IV 03/13/25 09:15 03/13/25 09:46 4 MG Laboratory Results Laboratory Tests 03/12/25 17:15 Urinalysis Test 03/13/25 13:00 Urine Color Light-yellow (Yellow) Urine Clarity Clear (Clear) Urine pH 6.5 (5.0-9.0) Urine Specific [place] 1.020 (1.001-1.035) Urine Protein Trace (Negative) H Urine Ketones Negative (Negative) Urine Blood Negative /uL (Negative) Urine Nitrite Negative (Negative) Urine Bilirubin Negative (Negative) Urine Urobilinogen Normal mg/dL (Negative) Urine Leukocyte Esterase Negative /uL (Negative) Urine RBC None seen /hpf (0 - 3) Urine Microscopic WBC 3 /HPF (0-3) Urine Squamous Epithelial Cells Few /hpf (<5) Urine Bacteria None seen /hpf (None Seen) Urine Mucus Few (None Seen) Urine Glucose Normal mg/dL (Normal) Labs and/or images reviewed: Labs reviewed by me, Image(s) reviewed by me Assessment/Plan Assessment/Plan Impression: -left knee effusion -obesity -dyslipidemia Plan: -awaiting radiology consultation for possible arthrocentesis -pain management -keep it left knee elevated -ortho consultation Total time spent with patient discussing and formulating plan of care: 35 minutes. This medical document was created using an electronic medical record system with [employer] dictation system. Although this document has been carefully reviewed, there may still be some phonetic and typographical errors. These areas are purely typographical due to imperfections of the software programs, and do not reflect any compromise in the patient's medical care. Plan discussed with: Patient, Other (RN) My Orders Orders - LIOR MEZA NP Procedure Category Date Status Time * Orthopedic Consult CONS 03/13/25 Verified 17:20 Date of Service: Mar 13, 2025 Billing Provider: LIOR MEZA NP Common Visit Codes: [id number] INP/OBS CARE(HIGH) LIOR MEZA NP Mar 13, 2025 17:26
[2025-03-14] VITALS (12 sets, daily range): BP systolic 112–142; BP diastolic 72–86; PULSE 68–106; RESP 17–18; TEMP 98–98.8; O2SAT 92–95
[2025-03-14] MEDS: HYDROcodone-ACET 5/325MG TAB PO PRN (05:14)
[2025-03-14 13:08] LABS: Anti-Nuclear Antibody Direct Negative (Negative)
--- NOTE | 2025-03-14 15:03 | DVHINCON2 ---
Date of service: Mar 14, 2025 Reason for Consultation Left knee pain History of Present Illness Mr. Goldman is a 49-year-old male who was brought to the hospital with an acute sudden onset of left knee pain for the last three days without a known injury or incident. Patient notes that the pain began with cramping sensation to his left lower extremity that gradually radiated up to his left knee and noticed swelling to his knee that he reports has since resolved since being admitted to the hospital. Patient reports some mild pain on today's evaluation but is otherwise feeling well denying any other complaints or concerns. Past Medical History Hyperlipidemia and asthma Past Surgical History Bilateral tympanoplasty Family History: Patient reports no known family medical history. Family History Noncontributory Social History Patient denied any smoking, EtOH, or illicit substance abuse Allergies: Coded Allergies: NO KNOWN ALLERGIES (Unverified , 11/11/24) Home Meds No Active Prescriptions or Reported Meds Review of Systems 10 point review of systems negative except as per HPI Vital Signs Vital Signs Date Time Temp Pulse Resp B/P (MAP) Pulse Ox O2 Delivery O2 Flow Rate FiO2 03/14/25 13:00 98.1 101 18 142/85 (104) 92 98.1 03/14/25 10:00 Room Air* 0 21 Physical Exam General appearance: A&O x4 in no acute distress HEENT: Normal ENT inspection, pharynx normal, TMs normal Neck: Full range of motion, nontender, normal inspection Respiratory: Chest nontender, without accessory muscle use, no respiratory distress Cardiovascular: No edema, no JVD, normal peripheral pulses Gastrointestinal: Soft, nontender, no organomegaly. Musculoskeletal: Left knee range of motion 0-130 with mild pain on movement, quadricep strength 5/5, hamstrings length 5/5, no calf tenderness, normal capillary refill, no pedal edema, neurovascularly intact. Skin: Dry, normal color, warm Lymphatic: No adenopathy Labs/Diagnostic Data Labs Test 03/13/25 13:00 03/12/25 21:58 03/12/25 17:15 Range/Units Urine Color Light-yellow Yellow Urine Clarity Clear Clear Urine pH 6.5 5.0-9.0 Urine Specific [place] 1.020 1.001-1.035 Urine Protein Trace H Negative Urine Ketones Negative Negative Urine Blood Negative Negative /uL Urine Nitrite Negative Negative Urine Bilirubin Negative Negative Urine Urobilinogen Normal Negative mg/dL Urine Leukocyte Esterase Negative Negative /uL Urine RBC None seen 0 - 3 /hpf Urine Microscopic WBC 3 0-3 /HPF Urine Squamous Epithelial Cells Few <5 /hpf Urine Bacteria None seen None Seen /hpf Urine Mucus Few None Seen Urine Glucose Normal Normal mg/dL Urine Opiates Screen Neg NEGATIVE Urine Fentanyl Screen Neg NEGATIVE Urine Barbiturates Screen Neg NEGATIVE Urine Phencyclidine Screen Neg NEGATIVE Urine Amphetamines Screen Neg NEGATIVE Urine Benzodiazepines Screen Neg NEGATIVE Urine Cocaine Screen Neg NEGATIVE Urine Cannabinoids Screen Neg NEGATIVE Lactic Acid Level 1.4 0.4-2.0 mmol/L Rheumatoid Factor 10.1 <14.0 IU/mL Anti-Nuclear Antibody Screen Negative Negative Hepatitis A IgM Antibody Negative Hepatitis B Surface Antigen Negative Negative Hepatitis B Core IgM Antibody Negative Negative Hepatitis C Antibody Negative Negative HIV (1&2) Antibody Negative Negative White Blood Count 6.5 4.4-10.8 10^3/uL Red Blood Count 5.93 H 4.5-5.90 10^6/uL Hemoglobin 16.7 13.5-17.5 g/dL Hematocrit 48.9 41.0-53.0 % Mean Corpuscular Volume 82.4 80.0-100.0 fL Mean Corpuscular Hemoglobin 28.1 28.0-32.0 pg Mean Corpuscular Hemoglobin Concent 34.1 32.0-36.0 g/dL Red Cell Distribution Width 14.3 11.8-14.3 % Platelet Count 294 140-450 10^3/uL Mean Platelet Volume 7.3 6.9-10.8 fL Neutrophils (%) (Auto) 57.5 37.0-80.0 % Lymphocytes (%) (Auto) 28.4 10.0-50.0 % Monocytes (%) (Auto) 10.2 0.0-12.0 % Eosinophils (%) (Auto) 3.7 0.0-7.0 % Basophils (%) (Auto) 0.2 0.0-2.0 % Neutrophils # (Auto) 3.7 1.6-8.6 10 ^3/uL Lymphocytes # (Auto) 1.8 0.4-5.4 10 ^3/uL Monocytes # (Auto) 0.7 0-1.3 10 ^3/uL Eosinophils # (Auto) 0.2 0-0.8 10 ^3/uL Basophils # (Auto) 0 0-0.2 10 ^3/uL Nucleated Red Blood Cells 0.3 % Erythrocyte Sedimentation Rate 3 0-20 mm/hr Prothrombin Time 9.9 9.3-11.8 sec Prothrombin Time INR 0.93 0.9-1.15 Activated Partial Thromboplast Time 29.0 24.5-34.5 SEC Sodium Level 142 136-145 mmol/L Potassium Level 4.0 3.5-5.1 mmol/L Chloride Level 107 98-107 mmol/L Carbon Dioxide Level 25 20-31 mmol/L Anion Gap 10 5-15 Blood Urea Nitrogen 14 9-23 mg/dL Creatinine 1.12 0.700-1.30 mg/dL Glomerular Filtration Rate Calc 82 >90 mL/min BUN/Creatinine Ratio 12.5 10.0-20.0 Serum Glucose 110 H 74-106 mg/dL Uric Acid 5.8 3.7-9.2 mg/dL Calcium Level 9.6 8.7-10.4 mg/dL Troponin I High Sensitivity < 3 L </=54 ng/L C-Reactive Protein High Sensitivity 0.28 <1.0 mg/dL B-Type Natriuretic Peptide 1.82 0-100 pg/mL Triglycerides Level 210 H < 150 mg/dL Cholesterol Level 213 H < 200 mg/dL LDL Cholesterol 138 H < 100 mg/dL HDL Cholesterol 60 H 40-59 mg/dL Left knee x-ray reviewed and demonstrated: Mild degenerative changes of the left knee without evidence of acute fracture. Large left knee effusion is suggestive of internal derangement. Assessment Left knee pain Plan/Recommendation I had a very lengthy discussion with the patient and after discussing his case and reviewing his imaging studies with Dr. Vaughan we have recommended against any surgical intervention at this time. Given that the patient's swelling has resolved and his range of motion is intact with good strength we have recom mended continuing with conservative treatment with rice and recommend following up on an outpatient basis with our orthopedic clinic to discuss further imaging studies and treatment options. Patient understood and agreed. Thank you for allowing us to participate in the care of your patient. Plan discussed with: Patient, Spouse ROSIO BRIDGES KEO Mar 14, 2025 15:03
--- NOTE | 2025-03-14 15:30 | DVHDS2 ---
Discharge Summary Date of Admission Mar 12, 2025 at 21:08 Date of Discharge: Mar 14, 2025 Admitting Diagnosis Questionable left knee septic arthritis Labs/Diagnostic Data: Laboratory Results Test 03/13/25 13:00 03/12/25 21:58 03/12/25 17:15 Urine Color Light-yellow (Yellow) Urine Clarity Clear (Clear) Urine pH 6.5 (5.0-9.0) Urine Specific Gem 1.020 (1.001-1.035) Urine Protein Trace (Negative) Urine Ketones Negative (Negative) Urine Blood Negative /uL (Negative) Urine Nitrite Negative (Negative) Urine Bilirubin Negative (Negative) Urine Urobilinogen Normal mg/dL (Negative) Urine Leukocyte Esterase Negative /uL (Negative) Urine RBC None seen /hpf (0 - 3) Urine Microscopic WBC 3 /HPF (0-3) Urine Squamous Epithelial Cells Few /hpf (<5) Urine Bacteria None seen /hpf (None Seen) Urine Mucus Few (None Seen) Urine Glucose Normal mg/dL (Normal) Urine Opiates Screen Neg (NEGATIVE) Urine Fentanyl Screen Neg (NEGATIVE) Urine Barbiturates Screen Neg (NEGATIVE) Urine Phencyclidine Screen Neg (NEGATIVE) Urine Amphetamines Screen Neg (NEGATIVE) Urine Benzodiazepines Screen Neg (NEGATIVE) Urine Cocaine Screen Neg (NEGATIVE) Urine Cannabinoids Screen Neg (NEGATIVE) Lactic Acid Level 1.4 mmol/L (0.4-2.0) Rheumatoid Factor 10.1 IU/mL (<14.0) Anti-Nuclear Antibody Screen Negative (Negative) Hepatitis A IgM Antibody Negative Hepatitis B Surface Antigen Negative (Negative) Hepatitis B Core IgM Antibody Negative (Negative) Hepatitis C Antibody Negative (Negative) HIV (1&2) Antibody Negative (Negative) White Blood Count 6.5 10^3/uL (4.4-10.8) Red Blood Count 5.93 10^6/uL (4.5-5.90) Hemoglobin 16.7 g/dL (13.5-17.5) Hematocrit 48.9 % (41.0-53.0) Mean Corpuscular Volume 82.4 fL (80.0-100.0) Mean Corpuscular Hemoglobin 28.1 pg (28.0-32.0) Mean Corpuscular Hemoglobin Concent 34.1 g/dL (32.0-36.0) Red Cell Distribution Width 14.3 % (11.8-14.3) Platelet Count 294 10^3/uL (140-450) Mean Platelet Volume 7.3 fL (6.9-10.8) Neutrophils (%) (Auto) 57.5 % (37.0-80.0) Lymphocytes (%) (Auto) 28.4 % (10.0-50.0) Monocytes (%) (Auto) 10.2 % (0.0-12.0) Eosinophils (%) (Auto) 3.7 % (0.0-7.0) Basophils (%) (Auto) 0.2 % (0.0-2.0) Neutrophils # (Auto) 3.7 10 ^3/uL (1.6-8.6) Lymphocytes # (Auto) 1.8 10 ^3/uL (0.4-5.4) Monocytes # (Auto) 0.7 10 ^3/uL (0-1.3) Eosinophils # (Auto) 0.2 10 ^3/uL (0-0.8) Basophils # (Auto) 0 10 ^3/uL (0-0.2) Nucleated Red Blood Cells 0.3 % Erythrocyte Sedimentation Rate 3 mm/hr (0-20) Prothrombin Time 9.9 sec (9.3-11.8) Prothrombin Time INR 0.93 (0.9-1.15) Activated Partial Thromboplast Time 29.0 SEC (24.5-34.5) Sodium Level 142 mmol/L (136-145) Potassium Level 4.0 mmol/L (3.5-5.1) Chloride Level 107 mmol/L (98-107) Carbon Dioxide Level 25 mmol/L (20-31) Anion Gap 10 (5-15) Blood Urea Nitrogen 14 mg/dL (9-23) Creatinine 1.12 mg/dL (0.700-1.30) Glomerular Filtration Rate Calc 82 mL/min (>90) BUN/Creatinine Ratio 12.5 (10.0-20.0) Serum Glucose 110 mg/dL (74-106) Uric Acid 5.8 mg/dL (3.7-9.2) Calcium Level 9.6 mg/dL (8.7-10.4) Troponin I High Sensitivity < 3 ng/L (</=54) C-Reactive Protein High Sensitivity 0.28 mg/dL (<1.0) B-Type Natriuretic Peptide 1.82 pg/mL (0-100) Triglycerides Level 210 mg/dL (< 150) Cholesterol Level 213 mg/dL (< 200) LDL Cholesterol 138 mg/dL (< 100) HDL Cholesterol 60 mg/dL (40-59) Other Laboratory Tests 03/12/25 17:15 Brief Hx & Hospital Course: History of Present Illness This is a 49-year-old male with past medical history of asthma not on medication, HLD came to ER with complaint of left knee pain and swelling which started suddenly 2 days ago which is constant, dull, 8/10 intensity, no radiation, aggravated on walking, no relieving factor. Patient stated he had left foot cramps at nighttime 2 days before and noticed swelling left knee next morning when he woke up from sleep. Denies any trauma, MVA , recent sick contacts, hiking or multiple sexual partner. Denies any heavy weightlifting, fever, SOB, chest pain, abdominal pain, dysuria or any other acute distress. Patient also noticed itching with scratches medial side of the left ankle but denies any insect bite. Course of hospitalization: Patient had no signs of infection. Ortho consultation was obtained regarding possible thoracentesis. Swelling has improved. Patient was instructed to wear a knee brace of the time of discharge and to decrease the amount of fat intake in his diet. Physical examination General: Alert and Oriented x3. No acute distress. Well-nourished. Obese Eyes: EOMI. Anicteric. HENT: Moist mucous membranes. Lungs: Clear to auscultation bilaterally. No accessory muscle use. Cardiovascular: Regular rate and rhythm. No murmur. No JVD. Abdomen: Soft, non-tender and non-distended. No palpable masses. Extremities: No edema. Non-tender. Skin: No rashes or lesions. Warm. Neurologic: No focal neurological deficits. CN II-XII grossly intact, but not individually tested. Psychiatric: Cooperative. Appropriate mood and affect. Total time spent with patient discussing and formulating plan of care: 35 minutes. This medical document was created using an electronic medical record system with [employer] dictation system. Although this document has been carefully reviewed, there may still be some phonetic and typographical errors. These areas are purely typographical due to imperfections of the software programs, and do not reflect any compromise in the patient's medical care. Consults/Reason for consult Orthopedic surgery: Possible arthrocentesis of knee effusion Condition at Discharge: Good Final Diagnosis/Problems List -left knee effusion -obesity -dyslipidemia Discharge Disposition: Home Discharge Instruct/Medications Diet: Cardiac 2g Na,low cholest Activity: No Restrictions, As Tolerated Follow Up/Referral: Establish PCP in 1-2 weeks No Active Prescriptions or Reported Meds 36 Discharge Statement: "Patient was advised to return to the ER or call 911 if any headaches, dizziness, shortness of breath, chest pain, abdominal pain, bleeding, fevers, or worsening of medical condition. Patient was counseled about treatment plan, medications, possible side effects, patientverbalized understanding. All questions were answered to the best of my ability. This discharge took greater then 30 minutes in planning, reviewing documentation, counseling the patient, and discussing with other team members." ASSESSMENT ASSESSMENT Assessment Left knee effusion Date of Service: Mar 14, 2025 Billing Provider: LIOR MEZA NP Common Visit Codes: 84099-MUM/OBS DISCH DAY >30min LIOR MEZA NP Mar 14, 2025 15:30
--- NOTE | 2025-03-14 19:08 | DVHSR ---
APPROVED REPORT EXAM: Two-dimensional and M-mode echocardiogram with Doppler and color Doppler. Blood Pressure: 123/85 mmHg INDICATION SOB RISK FACTORS Height: 5'11, Weight: 253 DIMENSIONS LVDd 4.6 (3.8-5.7cm) LA (2D) 4.1 (1.9-4.0cm) Aortic Root 2.5 (2.0-3.7cm) LVDs 3.1 (2.5-4.0cm) LA (MM) (1.9-4.0cm) Aortic Cusp Exc 2.2 (1.5-2.0cm) EF (%) 61.0 (55-70%) Rt. Atrium 4.1 (1.9-4.0cm) Asc. Aorta 2.9 cm IVSd 1.7 (0.7-1.1cm) RV (D) (1.8-2.4cm) PWd 1.4 (0.7-1.1cm) Mitral Valve Mitral Mitral Stenosis E wave 0.72m/s MV Mean GR. mmHg A wave 0.95m/s MV Peak GR. mmHg E/A ratio 0.8 2D MVA cm2 DECEL Time 243ms PRESS 1/2 Time ms Aortic Valve Aortic Valve Aortic Stenosis V1 1.56m/s AO Mean GR. 7mmHg V2 1.77m/s AO Peak GR. 13mmHg LVOT Diameter 2.3 (1.8-2.4cm) Doppler ANGEL 3.66cm2 Pulmonic Valve V2 1.82m/s Other Information Technically limited study due to body habitus. Conclusion Technically good study. Sinus rhythm. Left atrial enlargement. Concentric LVH. Aortic root enlargement. Right atrial enlargement. Valves are normal. Left Ventricular function is preserved at 60% with normal RV function. Dopplers unremarkable. No pericardial effusion masses or vegetations.
== END 2025-03-14 19:10 | disposition home or self-care (01) | DRG 566 ==
LOC: ER 15:26 → OVERFLOW 21:08 → WEST WING 03-13 20:32
PROVIDERS: ADMIT Nurse Practitioner Acute Care; ATTEND Nurse Practitioner Acute Care
DX: M25.462 Effusion, left knee (principal); E66.9 Obesity, unspecified; J45.909 Unspecified asthma, uncomplicated; E78.5 Hyperlipidemia, unspecified; Z68.38 Body mass index [BMI] 38.0-38.9, adult; Z80.0 Family history of malignant neoplasm of digestive organs; Z82.49 Family history of ischemic heart disease and other diseases of the circulatory system
CPT/HCPCS: 36415; 71045; 73562; 80048; 80061; 80074; 80307; 81001; 83605; 83880; 84484; 84550; 85025; 85610; 85652; 85730; 86038; 86141; 86431; 86703; 93306; 93926; 93971; 94640; 96372; G0378; J1885; J2405